=== PATIENT | male | born 1960 | race Caucasian/White ===

== ENCOUNTER 2019-12-14 17:47 | Emergency (ER) | payer OTHER ==
[2019-12-14 19:16] VITALS: BP 145/94
--- NOTE | 2019-12-14 19:16 | NUR ---
REVIEWED TRIGAE SEEN THAT APTIENT ONLY HAD A TRIAGE NOTE AND WEIGHT FURTHER REASSED WITH A SET OF VS BY ALVARO ESPINOZA
== END 2019-12-14 19:26 ==
LOC: ER 17:48
DX: G89.29 Other chronic pain (principal); I10 Essential (primary) hypertension; F10.99 Alcohol use, unspecified with unspecified alcohol-induced disorder; Z98.890 Other specified postprocedural states; V87.7XXA Person injured in collision between other specified motor vehicles (traffic), initial encounter; Y93.89 Activity, other specified; Y92.488 Other paved roadways as the place of occurrence of the external cause; Y99.8 Other external cause status; Y90.9 Presence of alcohol in blood, level not specified
CPT/HCPCS: 71045; 99283